=== PATIENT | female | born 1945 | race Caucasian/White ===

== ENCOUNTER 2018-12-17 09:50 | Inpatient (IN) | payer MEDICARE, OTHER ==
[2018-12-17] MEDS ORDERED: SODIUM CHLORIDE 0.9% 500 ML 500 ML IV STA (10:01)
--- NOTE | 2018-12-17 10:23 | ED ---
General Adult HPI - General Chief complaint: Syncope Stated complaint: SYNCOPE YESTERDAY HEART Hx Time Seen by Provider: 12/17/18 10:01 Source: patient, RN notes reviewed, old records reviewed Mode of arrival: wheelchair Limitations: no limitations - History of Present Illness Initial comments: 73-year-old female presents for evaluation of syncopal episode. Patient had a near syncopal episode yesterday afternoon. She was out in the hot sun, had not had much to eat or drink, she became lightheaded and diaphoretic. She had collapsed without injury. She was caught by her family member. Her symptoms did improve with oral hydration. She had no preceding chest pain or palpitations. She called her primary doctor today who encouraged her to present to the emergency department for evaluation. She states she may have been unconscious for just 1 second. No headache. She has been eating and drinking well today. She feels fine at the time my evaluation. - Related Data Home Medications Medication Instructions Recorded Confirmed Flecainide [Tambocor] 50 mg PO Q12HR 06/06/14 12/17/18 LORazepam [Ativan] 1 mg PO TID PRN 06/06/14 12/17/18 Metoprolol Tartrate [Lopressor] 50 mg PO BID 06/06/14 12/17/18 Losartan/Hydrochlorothiazide 1 tab PO DAILY 12/17/18 12/17/18 [Losartan-Hctz 100-25 mg Tab] Allergies Allergy/AdvReac Type Severity Reaction Status Date / Time No Known Allergies Allergy Verified 12/17/18 10:24 Review of Systems ROS Statement: Those systems with pertinent positive or pertinent negative responses have been documented in the HPI. ROS Other: All systems not noted in ROS Statement are negative. Past Medical History Past Medical History: Hypertension Additional Past Medical History / Comment(s): CYST TO SCALP,IRREGULAR HEARTBEAT. History of Any Multi-Drug Resistant Organisms: None Reported Past Surgical History: Cardiac Ablation, Hysterectomy, Orthopedic Surgery Additional Past Surgical History / Comment(s): RT WRIST SURGERY, SUSAN CATARACTS Past Anesthesia/Blood Transfusion Reactions: No Reported Reaction Past Psychological History: Anxiety Smoking Status: Never smoker Past Alcohol Use History: None Reported Past Drug Use History: None Reported - Past Family History Mother Additional Family Medical History / Comment(s): HEART PROBLEMS Father Additional Family Medical History / Comment(s): HEART PROBLEMS General Exam Limitations: no limitations General appearance: alert, in no apparent distress Head exam: Present: atraumatic, normocephalic Eye exam: Present: normal appearance, PERRL ENT exam: Present: mucous membranes dry Neck exam: Present: normal inspection. Absent: tenderness, meningismus Respiratory exam: Present: normal lung sounds bilaterally. Absent: respiratory distress, wheezes Cardiovascular Exam: Present: regular rate, normal rhythm GI/Abdominal exam: Present: soft. Absent: distended, tenderness, guarding Extremities exam: Present: normal inspection, normal capillary refill. Absent: pedal edema, joint swelling Neurological exam: Present: alert, oriented X3, CN II-XII intact. Absent: motor sensory deficit Psychiatric exam: Present: normal affect, normal mood Skin exam: Present: warm, dry, intact. Absent: cyanosis, diaphoretic Course Vital Signs 12/17/18 12/17/18 09:53 12:11 Temperature 98.0 F Pulse Rate 69 75 Respiratory 18 16 Rate Blood Pressure 147/79 127/70 O2 Sat by Pulse 97 94 L Oximetry EKG Findings - EKG Comments: EKG Findings:: EKG: Sinus rhythm first-degree AV block, right bundle branch blo ck, T-wave inversion in inferior leads. No ST segment elevation. Rate of 72, CT interval 234, QRS duration 162, QTC 512. Patient has significant changes in EKG compared to May 2014. Medical Decision Making - Medical Decision Making 73 female with episode of syncope. Patient has stable vitals, my evaluation. She is in normal sinus rhythm with right bundle branch block, significant change in EKG compared to prior. Patient has chest x-ray which negative for any acute cardiac disease, normal CBC, mild hypokalemia which is replaced, potassium is 3.3. She has creatinine 1.2 which is slightly elevated from baseline. She has a troponin is 0.018. Urinalysis negative. Will be kept in observation for serial cardiac enzymes, telemetry, cardiology consultation. Case is discussed with Dr. Hendricks, will accept admission. Recommends ultrasound of carotid arteries and echo. This will be ordered. - Lab Data Result diagrams: 12/17/18 10:00 12/17/18 10:00 Lab Results 12/17/18 12/17/18 12/17/18 Range/Units 10:00 10:00 10:00 WBC 8.8 (3.8-10.6) k/uL RBC 5.02 (3.80-5.40) m/uL Hgb 15.6 (11.4-16.0) gm/dL Hct 45.9 (34.0-46.0) % MCV 91.6 (80.0-100.0) fL MCH 31.2 (25.0-35.0) pg MCHC 34.1 (31.0-37.0) g/dL RDW 12.9 (11.5-15.5) % Plt Count 342 (150-450) k/uL Neutrophils % 70 % Lymphocytes % 20 % Monocytes % 6 % Eosinophils % 3 % Basophils % 1 % Neutrophils # 6.2 (1.3-7.7) k/uL Lymphocytes # 1.8 (1.0-4.8) k/uL Monocytes # 0.5 (0-1.0) k/uL Eosinophils # 0.2 (0-0.7) k/uL Basophils # 0.0 (0-0.2) k/uL PT 10.1 (9.0-12.0) sec INR 0.9 (<1.2) APTT 23.4 (22.0-30.0) sec Sodium 140 (137-145) mmol/L Potassium 3.3 L (3.5-5.1) mmol/L Chloride 101 (98-107) mmol/L Carbon Dioxide 31 H (22-30) mmol/L Anion Gap 8 mmol/L BUN 32 H (7-17) mg/dL Creatinine 1.22 H (0.52-1.04) mg/dL Est GFR (CKD-EPI)AfAm 51 (>60 ml/min/1.73 sqM) Est GFR (CKD-EPI)NonAf 44 (>60 ml/min/1.73 sqM) Glucose 99 (74-99) mg/dL Calcium 10.1 (8.4-10.2) mg/dL Magnesium 2.0 (1.6-2.3) mg/dL Total Bilirubin 0.6 (0.2-1.3) mg/dL AST 20 (14-36) U/L ALT 22 (9-52) U/L Alkaline Phosphatase 74 (38-126) U/L Troponin I (0.000-0.034) ng/mL Total Protein 7.4 (6.3-8.2) g/dL Albumin 4.1 (3.5-5.0) g/dL Urine Color Urine Appearance (Clear) Urine pH (5.0-8.0) Ur Specific [place] (1.001-1.035) Urine Protein (Negative) Urine Glucose (UA) (Negative) Urine Ketones (Negative) Urine Blood (Negative) Urine Nitrite (Negative) Urine Bilirubin (Negative) Urine Urobilinogen (<2.0) mg/dL Ur Leukocyte Esterase (Negative) Urine WBC (0-5) /hpf Ur Squamous Epith Cells (0-4) /hpf Amorphous Sediment (None) /hpf Urine Bacteria (None) /hpf Urine Mucus (None) /hpf 12/17/18 12/17/18 Range/Units 10:00 10:00 WBC (3.8-10.6) k/uL RBC (3.80-5.40) m/uL Hgb (11.4-16.0) gm/dL Hct (34.0-46.0) % MCV (80.0-100.0) fL MCH (25.0-35.0) pg MCHC (31.0-37.0) g/dL RDW (11.5-15.5) % Plt Count (150-450) k/uL Neutrophils % % Lymphocytes % % Monocytes % % Eosinophils % % Basophils % % Neutrophils # (1.3-7.7) k/uL Lymphocytes # (1.0-4.8) k/uL Monocytes # (0-1.0) k/uL Eosinophils # (0-0.7) k/uL Basophils # (0-0.2) k/uL PT (9.0-12.0) sec INR (<1.2) APTT (22.0-30.0) sec Sodium (137-145) mmol/L Potassium (3.5-5.1) mmol/L Chloride (98-107) mmol/L Carbon Dioxide (22-30) mmol/L Anion Gap mmol/L BUN (7-17) mg/dL Creatinine (0.52-1.04) mg/dL Est GFR (CKD-EPI)AfAm (>60 ml/min/1.73 sqM) Est GFR (CKD-EPI)NonAf (>60 ml/min/1.73 sqM) Glucose (74-99) mg/dL Calcium (8.4-10.2) mg/dL Magnesium (1.6-2.3) mg/dL Total Bilirubin (0.2-1.3) mg/dL AST (14-36) U/L ALT (9-52) U/L Alkaline Phosphatase (38-126) U/L Troponin I 0.018 (0.000-0.034) ng/mL Total Protein (6.3-8.2) g/dL Albumin (3.5-5.0) g/dL Urine Color Yellow Urine Appearance Cloudy H (Clear) Urine pH 5.5 (5.0-8.0) Ur Specific [place] 1.021 (1.001-1.035) Urine Protein Negative (Negative) Urine Glucose (UA) Negative (Negative) Urine Ketones Negative (Negative) Urine Blood Negative (Negative) Urine Nitrite Negative (Negative) Urine Bilirubin Negative (Negative) Urine Urobilinogen <2.0 (<2.0) mg/dL Ur Leukocyte Esterase Trace H (Negative) Urine WBC 9 H (0-5) /hpf Ur Squamous Epith Cells 6 H (0-4) /hpf Amorphous Sediment Moderate H (None) /hpf Urine Bacteria Rare H (None) /hpf Urine Mucus Rare H (None) /hpf Disposition Clinical Impression: Syncope and collapse Disposition: ADMITTED IP TO THIS HOSP Condition: Stable Is patient prescribed a controlled substance at d/c from ED?: No Referrals: Bernardo Saldana DO [Primary Care Provider] - 1-2 days Decision to Admit Reason: Admit from EC Decision Date: 12/17/18 Decision Time: 13:34
[2018-12-17 10:48] LABS: Basophils % (A) 1 %; Eosinophils # (A) 0.2 k/uL (0-0.7); Eosinophils % (A) 3 %; HCT 45.9 % (34.0-46.0); HGB 15.6 gm/dL (11.4-16.0); Lymphocytes # (A) 1.8 k/uL (1.0-4.8); Lymphocytes % (A) 20 %; MCH 31.2 pg (25.0-35.0); MCHC 34.1 g/dL (31.0-37.0); MCV 91.6 fL (80.0-100.0); Mean Platelet Volume 8.1; Monocytes # (A) 0.5 k/uL (0-1.0); Monocytes % (A) 6 %; Neutrophils # (A) 6.2 k/uL (1.3-7.7); Neutrophils % (A) 70 %; Platelet Count 342 k/uL (150-450); RBC 5.02 m/uL (3.80-5.40); RDW 12.9 % (11.5-15.5); WBC 8.8 k/uL (3.8-10.6)
--- NOTE | 2018-12-17 10:50 | XR ---
EXAMINATION TYPE: XR chest 2V DATE OF EXAM: 12/17/2018 COMPARISON: 09/05/2015 HISTORY: Shortness of breath TECHNIQUE: Frontal and lateral views of the chest are obtained. FINDINGS: Scattered senescent parenchymal changes noted. Hyperinflation compatible with COPD. No evidence for infiltrate. No evidence for atelectasis. Heart size is stable. Mediastinal structures are stable and grossly unremarkable. No evidence for hilar prominence. Degenerative changes dorsal spine. IMPRESSION: 1. No evidence for acute pulmonary disease.
[2018-12-17 10:58] LABS: Albumin 4.1 g/dL (3.5-5.0); Calcium 10.1 mg/dL (8.4-10.2); Potassium 3.3 mmol/L (3.5-5.1); Total Bilirubin 0.6 mg/dL (0.2-1.3); Total Protein 7.4 g/dL (6.3-8.2)
[2018-12-17 11:01] LABS: Amorphous Sediment,Urine Moderate /hpf; Appearance,Urine Cloudy (Clear); Bacteria,Urine Rare /hpf; Bilirubin,Urine Negative (Negative); Blood,Urine Negative (Negative); Color,Urine Yellow; Glucose,Urine (UA) Negative (Negative); Ketones,Urine Negative (Negative); Leukocyte Esterase,Urine Trace (Negative); Mucus,Urine Rare /hpf; Nitrite,Urine Negative (Negative); PH, Urine 5.5 (5.0-8.0); Protein,Urine Negative (Negative); Specific Gravity,Urine 1.021 (1.001-1.035); Squamous Epithelial Cell,Urine 6 /hpf (0-4); Urobilinogen,Urine <2.0 mg/dL (<2.0); WBC,Urine 9 /hpf (0-5)
[2018-12-17 11:04] LABS: INR 0.9 (<1.2); Partial Thromboplastin Time 23.4 sec (22.0-30.0); Prothrombin Time 10.1 sec (9.0-12.0)
[2018-12-17] MEDS ORDERED: POTASSIUM CHLORIDE ER 20 MEQ TAB.ER PO STA (12:09)
[2018-12-17 12:13] VITALS: RESP 16
[2018-12-17] MEDS: SODIUM CHLORIDE 0.9% 1,000 ML IV SCH (12:22)
[2018-12-17] MEDS ORDERED: ASPIRIN 325 MG TAB PO STA (13:28)
[2018-12-17] MEDS ORDERED: ACETAMINOPHEN TAB 325 MG TAB PO PRN (13:29)
[2018-12-17] MEDS ORDERED: NALOXONE 0.4 MG/ML 1 ML VIAL IV PRN (13:29)
--- NOTE | 2018-12-17 15:14 | US ---
EXAMINATION TYPE: US carotid duplex BILAT DATE OF EXAM: 12/17/2018 COMPARISON: NONE CLINICAL HISTORY: syncope. Syncope Pt having uncontrollable movements during exam, difficult exam EXAM MEASUREMENTS: RIGHT: Peak Systolic Velocity (PSV) cm/sec ----- Right CCA: 43.5 ----- Right ICA: 47.9 ----- Right ECA: 111.3 ICA/CCA ratio: 1.1 RIGHT: End Diastole cm/sec ----- Right CCA: 8.6 ----- Right ICA: 11.3 ----- Right ECA: 12.8 LEFT: Peak Systolic Velocity (PSV) cm/sec ----- Left CCA: 60.1 ----- Left ICA: 61.0 ----- Left ECA: 100.0 ICA/CCA ratio: 1.0 LEFT: End Diastole cm/sec ----- Left CCA: 12.1 ----- Left ICA: 16.5 ----- Left ECA: 9.2 VERTEBRALS (direction of flow): Right Vertebral: Antegrade Left Vertebral: Unable to visualize Rhythm: Normal No significant stenosis seen IMPRESSION: No evidence for hemodynamically significant stenosis. Criteria for Assigning % of Stenosis / Diameter reduction (Estimation based on the indirect measurements of the internal carotid artery velocities (ICA PSV). 1. Normal (no stenosis)=ICA PSV < 125 cm/s: ratio < 2.0: ICA EDV<40 cm/s. 2. Less than 50% stenosis=ICA PSV < 125 cm/s: ratio < 2.0: ICA EDV<40 cm/s. 3. 50 to 69% stenosis=ICA PSV of 125 to 230 cm/s: ration 2.0 ? 4.0: ICA EDV 40-100 cm/s. 4. Greater than 70% stenosis to near occlusion= ICA PSV > 230 cm/s: ratio > 4.0: ICA EDV > 100 cm/s. 5. Near occlusion= ICA PSV velocities may be low or undetectable: variable ratio and ICA EDV. 6. Total occlusion=unable to detect flow.
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
[2018-12-17] MEDS: FLECAINIDE 50 MG TAB PO SCH (20:25)
[2018-12-17] MEDS: METOPROLOL TARTRATE 50 MG TAB PO SCH (20:25)
[2018-12-17] MEDS: LORazepam 1 MG TAB PO PRN (22:27)
[2018-12-17] MEDS: HEPARIN SODIUM,PORCINE 5,000 UNIT/ML 1 ML VIAL SQ SCH (22:28)
[2018-12-18 06:25] LABS: Basophils % (A) 1 %; Eosinophils # (A) 0.2 k/uL (0-0.7); Eosinophils % (A) 3 %; HCT 39.3 % (34.0-46.0); HGB 12.8 gm/dL (11.4-16.0); Lymphocytes # (A) 1.7 k/uL (1.0-4.8); Lymphocytes % (A) 28 %; MCH 30.7 pg (25.0-35.0); MCHC 32.6 g/dL (31.0-37.0); Mean Platelet Volume 8.4; Monocytes # (A) 0.3 k/uL (0-1.0); Monocytes % (A) 5 %; Neutrophils # (A) 3.7 k/uL (1.3-7.7); Neutrophils % (A) 62 %; Platelet Count 262 k/uL (150-450); RBC 4.18 m/uL (3.80-5.40); RDW 14.2 % (11.5-15.5); WBC 6.1 k/uL (3.8-10.6)
[2018-12-18 06:34] LABS: Calcium 8.3 mg/dL (8.4-10.2); Potassium 3.7 mmol/L (3.5-5.1); Total Bilirubin 0.5 mg/dL (0.2-1.3); Total Protein 5.7 g/dL (6.3-8.2)
[2018-12-18] MEDS: METOPROLOL TARTRATE 50 MG TAB PO SCH ×2 (09:00→20:48)
[2018-12-18] MEDS: HEPARIN SODIUM,PORCINE 5,000 UNIT/ML 1 ML VIAL SQ SCH ×3 (09:00→22:38)
[2018-12-18] MEDS: LOSARTAN-HCTZ 50-12.5 MG 1 EACH TAB PO SCH (09:00)
[2018-12-18] MEDS: SODIUM CHLORIDE 0.9% 1,000 ML IV SCH ×2 (09:00→17:28)
[2018-12-18] MEDS ORDERED: ASPIRIN 325 MG TAB PO SCH (09:00)
[2018-12-18] MEDS: FAMOTIDINE 20 MG TAB PO SCH (09:01)
[2018-12-18] MEDS: FLECAINIDE 50 MG TAB PO SCH ×2 (09:01→20:48)
[2018-12-18] MEDS: LORazepam 1 MG TAB PO PRN ×2 (09:07→22:38)
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
--- NOTE | 2018-12-18 09:23 | ECHOF ---
Referral Reason:syncope MEASUREMENTS -------- HEIGHT: 170.2 cm WEIGHT: 63.5 kg BP: IVSd: 1.0 cm (0.6 - 1.1) LVIDd: 4.3 cm (3.9 - 5.3) LVPWd: 1.1 cm (0.6 - 1.1) IVSs: 1.7 cm LVIDs: 2.1 cm LVPWs: 1.9 cm RVIDd: 2.9 cm (< 3.3) Ao Diam: 4.0 cm (2.0 - 3.7) LA Diam: 2.5 cm (2.7 - 3.8) AV Cusp: 2.1 cm (1.5 - 2.6) EPSS: 0.2 cm MV E Angel Luis: 0.49 m/s MV DecT: 219 ms MV A Angel Luis: 0.88 m/s MV E/A Ratio: 0.56 AR PHT: 530 ms RAP: 5.00 mmHg RVSP: 14.34 mmHg MV EF SLOPE: 47.87 mm/s (70 - 150) MV EXCURSION: 16.66 mm (> 18.000) FINDINGS -------- Sinus rhythm. This was a technically difficult study with suboptimal views. The left ventricular size is normal. Left ventricular wall thickness is normal. Overall left vent ricular systolic function is normal with, an EF between 55 - 60 %. The right ventricle is normal in size. The left atrial size is normal. The right atrial size is normal. Lumason used Interatrial and interventricular septum intact. Aortic valve is trileaflet and is mildly thickened. Trace amount of aortic regurgitation. The mitral valve is normal. The mitral valve leaflets are mildly thickened. There is trace mitral regurgitation. The tricuspid valve appears structurally normal. Trace tricuspid regurgitation present. There is no evidence of pulmonary hypertension. The right ventricular systolic pressure, as measured by Dopp ler, is 14.34mmHg. Trace/mild (physiologic) pulmonic regurgitation. The aortic root is dilated measuring 4.0 cm The inferior vena cava was not well visualized. There is no pericardial effusion. CONCLUSIONS -------- 1. Sinus rhythm. 2. This was a technically difficult study with suboptimal views. 3. The left ventricular size is normal. 4. Left ventricular wall thickness is normal. 5. Overall left ventricular systolic function is normal with, an EF between 55 - 60 %. 6. The right ventricle is normal in size. 7. The left atrial size is normal. 8. The right atrial size is normal. 9. Lumason used 10. Interatrial and interventricular septum intact. 11. Aortic valve is trileaflet and is mildly thickened. 12. Trace amount of aortic regurgitation. 13. The mitral valve is normal. 14. The mitral valve leaflets are mildly thickened. 15. There is trace mitral regurgitation. 16. The tricuspid valve appears structurally normal. 17. Trace tricuspid regurgitation present. 18. There is no evidence of pulmonary hypertension. 19. The right ventricular systolic pressure, as measured by Doppler, is 14.34mmHg. 20. Trace/mild (physiologic) pulmonic regurgitation. 21. The aortic root is dilated measuring 4.0 cm. 22. The inferior vena cava was not well visualized. 23. There is no pericardial effusion. GLAZE HANDLER: Josey Jin RDCS
--- NOTE | 2018-12-18 13:45 | P.PN ---
Subjective Progress Note Date: 12/18/18 73-year-old female one of Dr. Saldana patient who is mildly mentally challenged with past medical history of atrial tachycardia /SVT post- ablation therapy few years ago Dr. Clark has been doing well she went for her niece's graduation yesterday while she is waiting in line become very dehydrated very flushed and sweaty and had syncopal episode lasted only for a few seconds and did not have loss of consciousness at the time patient was very lightheaded and dizzy did not feel well the rest of the day.This morning patient has not been feeling well at all has been shaky had low-grade temperature mild nausea slight lightheadedness ended up calling Dr. Ruiz office and was instructe d to come to the emergency department at [facility] where was seen and evaluated her lab showed acute kidney injury UA was slightly but positive for UTI EKG showed right bundle-branch block with negative troponin with the syncopal episode and the above problem decided to admit patient to the hospital controlled her symptom reevaluated by cardiology and treat her UTI along with hydrating her well. 12/18: Patient sitting up in a recliner she denies any chest pain or any shortness breath she is feeling better she denies any dizziness or lightheadedness, she has no abdominal pain, nausea, vomiting, she was started yesterday on Rocephin for possible UTI. She would be seen in consultation by cardiology for possibility of cardiac cause of her syncope. Review of Systems CONSTITUTIONAL: Well-developed no acute respiratory distress. EYES: No icterus sclerae, no conjunctivitis. EARS, NOSE, MOUTH, THROAT, and FACE: No sore throat, lymphadenopathy, carotid bruits or deformity. RESPIRATORY: No SOB cough or wheezes. CARDIOVASCULAR: Mild lightheadedness and syncope with mild palpitation. GASTROINTESTINAL: No Abd pain, Nausea or vomiting, no Diarrhea or constipation, No GI Bleed, no distention or masses. GENITOURINARY: Positive polyuria urinary frequency and UTI. INTEGUMENT/BREAST: Negative for any muscular injury with mild osteoarthritis.. HEMATOLOGIC/LYMPHATIC: Negative for bleed or purpura. MUSCULOSKELTAL: Negative for Myalgia or arthralgia. NEURLOGICAL: Syncope with no sign of seizure BEHAVIORAL/PSYCH: Negative. ENDOCRINE: Negative. Objective - Vital Signs Vital signs: Vital Signs Temp 97.6 F 12/18/18 03:30 Pulse 68 12/18/18 03:30 Resp 16 12/18/18 03:30 BP 134/78 12/18/18 03:30 Pulse Ox 94 L 12/18/18 03:30 Intake & Output 12/17/18 12/18/18 12/18/18 18:59 06:59 18:59 Intake Total 150 420 Output Total 250 100 Balance -100 320 Weight 63.503 kg 64 kg Intake: Intake, IV Titration 150 Amount Sodium Chloride 0.9% 1, 150 000 ml @ 75 mls/hr IV . [id number] THOMAS Rx#:[id number] Oral 420 Output: Urine 250 100 Other: # Voids 1 1 # Bowel Movements 1 - Exam General Appearance: Alert, cooperative, no distress, appears stated age. Neck HEENT: Supple, no lymphadenopathy, no thyroid enlargement, no carotid bruits. Lungs: Clear to auscultation without crackles or wheezes no rhonchi, no deformity. Chest Wall: Chest wall normal expansion with deep inspiration no tenderness and no deformity was found on exam, no costochondral pain or discomfort. Heart: Regular rate and rhythm, S1, S2 normal, no murmur, rub or gallop. Back: Symmetric, no curvature, ROM normal, no CVA tenderness. Abdomen: Soft, non-tender, bowel sounds active all four quadrants, no masses, no organomegaly. Slight lower abdominal discomfort. Extremities: Extremities normal, atraumatic, no cyanosis or edema. Pulses: 2+ and symmetric. Skin: Skin color, texture, tugor normal, no rashes or lesions. Neurologic: Alert oriented moving all her 4 extremity has generalized weakness overall with mild abnormal balance and gait, her cognitive and current medic ation is not that great - Labs CBC & Chem 7: 12/18/18 05:37 12/18/18 05:37 Labs: Abnormal Lab Results - Last 24 Hours (Table) 12/17/18 12/17/18 12/18/18 Range/Units 10:00 10:00 05:37 Potassium 3.3 L (3.5-5.1) mmol/L Chloride 110 H (98-107) mmol/L Carbon Dioxide 31 H (22-30) mmol/L BUN 32 H 23 H (7-17) mg/dL Creatinine 1.22 H (0.52-1.04) mg/dL Calcium 8.3 L (8.4-10.2) mg/dL Total Protein 5.7 L (6.3-8.2) g/dL Albumin 3.0 L (3.5-5.0) g/dL Urine Appearance Cloudy H (Clear) Ur Leukocyte Esterase Trace H (Negative) Urine WBC 9 H (0-5) /hpf Ur Squamous Epith Cells 6 H (0-4) /hpf Amorphous Sediment Moderate H (None) /hpf Urine Bacteria Rare H (None) /hpf Urine Mucus Rare H (None) /hpf Assessment and Plan Assessment: Assessment and Plan Plan: 1 syncope: Not clear etiology, cardiac versus neurology problem, dehydration, arrhythmia, UTI, hypotension. Will hydrate patient, treat underlying disease, watch her on phototypesetting equipment monitor, CK with troponin 3 will be done, if recurrent symptom further testing including longer term heart monitor along with tilt table study and referred to electrophysiology. 2 severe dehydration: Patient will be on IV fluid for the next 24 hours we'll continue to check for any orthostatic blood pressure check change. 3 abnormal EKG: With right bundle branch block with Narrow QRS complex previously patient apparently seen Dr. Clark on regular basis and still on Tambocor she had ablation therapy in the past, CK with troponin will be done repeat EKG echocardiogram and recheck by cardiology. 4 UTI: Urine culture be done, patient will have 1 g of Rocephin daily and when going home she'll be on Ceftin 250 mg twice a day for 7 days. 5 A. fib with RVR: Post ablation still on Tambocor and metoprolol with pulse rates under control lately. 6 hypertension: Has been on losartan HCT handed/25 g a day along with Lopressor 50 mg twice a day. 7 acute kidney injury: Most likely from dehydration repeat CMP tomorrow. GI prophylaxis: Patient will be on Pepcid 20 mg daily. DVT prophylaxis: Patient will be on heparin 5000 units subcu in his twice a day.
[2018-12-19 05:58] LABS: Basophils % (A) 1 %; Eosinophils # (A) 0.2 k/uL (0-0.7); Eosinophils % (A) 3 %; HCT 37.2 % (34.0-46.0); HGB 12.3 gm/dL (11.4-16.0); Lymphocytes # (A) 1.3 k/uL (1.0-4.8); Lymphocytes % (A) 20 %; MCH 30.7 pg (25.0-35.0); MCV 93.1 fL (80.0-100.0); Mean Platelet Volume 8.2; Monocytes # (A) 0.4 k/uL (0-1.0); Monocytes % (A) 6 %; Neutrophils # (A) 4.5 k/uL (1.3-7.7); Neutrophils % (A) 69 %; Platelet Count 226 k/uL (150-450); RBC 3.99 m/uL (3.80-5.40); WBC 6.6 k/uL (3.8-10.6)
[2018-12-19 06:06] VITALS: TEMP 98.1
[2018-12-19 06:09] LABS: Calcium 8.5 mg/dL (8.4-10.2); Potassium 3.3 mmol/L (3.5-5.1); Total Bilirubin 0.6 mg/dL (0.2-1.3); Total Protein 5.6 g/dL (6.3-8.2)
[2018-12-19] MEDS: SODIUM CHLORIDE 0.9% 1,000 ML IV SCH (08:34)
[2018-12-19] MEDS: HEPARIN SODIUM,PORCINE 5,000 UNIT/ML 1 ML VIAL SQ SCH (08:35)
[2018-12-19] MEDS: FLECAINIDE 50 MG TAB PO SCH (08:36)
[2018-12-19] MEDS: METOPROLOL TARTRATE 50 MG TAB PO SCH (08:36)
[2018-12-19] MEDS: FAMOTIDINE 20 MG TAB PO SCH (08:36)
[2018-12-19] MEDS: LOSARTAN-HCTZ 50-12.5 MG 1 EACH TAB PO SCH (08:36)
[2018-12-19] MEDS: LORazepam 1 MG TAB PO PRN (08:39)
[2018-12-19] MEDS ORDERED: ASPIRIN 81 MG PO SCH (09:00)
[2018-12-19] MEDS ORDERED: POTASSIUM CHLORIDE ER 20 MEQ TAB.ER PO STA (09:09)
--- NOTE | 2018-12-19 11:21 | P.DS ---
Providers Date of admission: 12/17/18 13:29 Attending physician: Rudolph Hendricks Consults: 12/17/18 13:30 Consult Physician Routine Consulting Provider: Fabio Hernandez Consult Reason/Comments: syncope ekg changes Do you want consulting provider notified?: Yes 12/17/18 16:16 Consult Physician Routine Consulting Provider: Dee Nowak Consult Reason/Comments: RBBB, syncope Do you want consulting provider notified?: Yes Primary care physician: Bernardo Saldana [facility] Course: 73-year-old female one of Dr. Saldana patient who is mildly mentally challenged with past medical history of atrial tachycardia /SVT post- ablation therapy few years ago Dr. Clark has been doing well she went for her niece's graduation yesterday while she is waiting in line become very dehydrated very flushed and sweaty and had syncopal episode lasted only for a few seconds and did not have loss of consciousness at the time patient was very lightheaded and dizzy did not feel well the rest of the day.This morning patient has not been feeling well at all has been shaky had low-grade temperature mild nausea slight lightheadedness ended up calling Dr. Ruiz office and was instructed to come to the emergency department at [facility] where was seen and evaluated her lab showed acute kidney injury UA was slightly but positive for UTI EKG showed right bundle-branch block with negative troponin with the s yncopal episode and the above problem decided to admit patient to the hospital controlled her symptom reevaluated by cardiology and treat her UTI along with hydrating her well. 12/18: Patient sitting up in a recliner she denies any chest pain or any shortness breath she is feeling better she denies any dizziness or lightheadedness, she has no abdominal pain, nausea, vomiting, she was started yesterday on Rocephin for possible UTI. She would be seen in consultation by cardiology for possibility of cardiac cause of her syncope. 12/19: Patient is feeling better today she denies any chest pain, she has no shortness of breath, she has no dizziness or lightheadedness, we will discontinue IV fluid we will increase ambulation, patient can be discharged home she will need to have a 30 day event monitor she will picker and sorter load and unload [facility] hopefully on Thursday. Discharge diagnoses: 1. Syncope. Rule out cardiac causes 2. Minimal prerenal azotemia. 3. History of atrial tachycardia and SVT post-ablation in 2013 4. Bifascicular block on EKG 5. UTI. Patient Condition at Discharge: Stable Plan - Discharge Summary Discharge Rx Participant: No New Discharge Prescriptions: New Aspirin 81 mg PO DAILY chew Cefdinir [Omnicef] 300 mg PO BID #14 cap Continue LORazepam [Ativan] 1 mg PO TID PRN PRN Reason: Anxiety Metoprolol Tartrate [Lopressor] 50 mg PO BID Flecainide [Tambocor] 50 mg PO Q12HR Losartan/Hydrochlorothiazide [Losartan-Hctz 100-25 mg Tab] 1 tab PO DAILY Discharge Medication List Flecainide [Tambocor] 50 mg PO Q12HR 06/06/14 [History] LORazepam [Ativan] 1 mg PO TID PRN 06/06/14 [History] Metoprolol Tartrate [Lopressor] 50 mg PO BID 06/06/14 [History] Losartan/Hydrochlorothiazide [Losartan-Hctz 100-25 mg Tab] 1 tab PO DAILY 12/17/18 [History] Aspirin 81 mg PO DAILY chew 12/19/18 [Rx] Cefdinir [Omnicef] 300 mg PO BID #14 cap 12/19/18 [Rx] Follow up Appointment(s)/Referral(s): Bernardo Saldana DO [Primary Care Provider] - 1-2 days Discharge Disposition: HOME SELF-CARE
--- NOTE | 2018-12-19 12:12 | P.PN ---
Subjective Progress Note Date: 12/19/18 Principal diagnosis: Syncopal episode This is a pleasant 73-year-old female patient with a past medical history significant for SVT who underwent SVT ablation in the past as well as hypertension who was admitted to the hospital with syncope and underwent an echocardiogram which revealed normal LV function. No significant arrhythmia noted throughout her hospital stay. On follow-up with her today, 12/19/2018, she denies any chest pain or discomfort, shortness of breath, dizziness, or feeling of heart racing or fluttering. From the cardiac vascular standpoint overview, the patient can be discharged home and she needs to have an event monitor as an outpatient to rule out any cardiac arrhythmia. Objective - Vital Signs Vital signs: Vital Signs Temp 98.1 F 12/19/18 04:00 Pulse 79 12/19/18 08:00 Resp 16 12/19/18 08:00 BP 143/91 12/19/18 08:00 Pulse Ox 91 L 12/19/18 08:00 Intake & Output 12/18/18 12/19/18 12/19/18 18:59 06:59 18:59 Intake Total 900 300 240 Output Total 550 325 Balance 350 300 -85 Weight 68.6 kg Intake: Intake, IV Titration 300 Amount Sodium Chloride 0.9% 1, 300 000 ml @ 75 mls/hr IV . [id number] [facility] Rx#:[id number] Oral 900 240 Output: Urine 550 325 Other: # Voids 1 1 1 # Bowel Movements 1 1 - Constitutional General appearance: Present: no acute distress - Respiratory Respiratory: bilateral: CTA - Cardiovascular Rhythm: regular Heart sounds: normal: S1, S2 - Labs CBC & Chem 7: 12/19/18 05:46 12/19/18 05:46 Labs: Abnormal Lab Results - Last 24 Hours (Table) 12/19/18 Range/Units 05:46 Potassium 3.3 L (3.5-5.1) mmol/L Chloride 111 H (98-107) mmol/L Creatinine 1.05 H (0.52-1.04) mg/dL Total Protein 5.6 L (6.3-8.2) g/dL Albumin 3.0 L (3.5-5.0) g/dL Assessment and Plan Assessment: Assessment #1 syncopal episode #2 history of cardiac arrhythmia Plan #1 the patient can be discharged home #2 she needs to have an event monitor as an outpatient
[2018-12-19 12:14] VITALS: BP 133/70; PULSE 66
[2018-12-19] MEDS ORDERED: CEFDINIR 300 MG CAP PO SCH (21:00)
--- NOTE | 2018-12-21 06:14 | CDI ---
Documentation Clarification Form Date: 12/21/18 From: Hima Elkins Phone: call to [phone] Admit Date: 12/17/2018 1:29:00 PM Patient Name: Kathryn Lyons Visit Number: [id number] Discharge Date: 12/19/2018 3:10:00 PM ATTENTION: The Clinical Documentation Specialists (CDI) and [facility] Coding Staff appreciate your assistance in clarifying documentation. Please respond to the clarification below the line at the bottom and electronically sign. The CDI & [facility] Coding staff will review the response and follow-up if needed. Please note: Queries are made part of the Legal Health Record. If you have any questions, please contact the author of this message via ITS. Dr. Mini Ojeda, Request clarification of underlying cause of syncope. Pt presented with Syncope and underlying UTI. Patient also had Dehydration and CHAVA. Treatment: IV fluids, Antibiotics. Workup: Cardiac workup- Negative. In your professional opinion, can you please clarify which diagnosis, after study, accounted for the patients presenting symptoms and was the reason chiefly responsible for the admission? Syncope is Related to Dehydration and CHAVA. Syncope due to . Syncope cause unknown. MTDD
== END 2018-12-19 15:10 | disposition home or self-care (01) | DRG 312 ==
LOC: EC 09:50 → 3SCARD 13:29
PROVIDERS: ADMIT Internal Medicine Geriatric Medicine; ATTEND Internal Medicine Geriatric Medicine
DX: R55 Syncope and collapse (principal); N17.9 Acute kidney failure, unspecified; N39.0 Urinary tract infection, site not specified; I45.2 Bifascicular block; E86.0 Dehydration; I10 Essential (primary) hypertension; I44.0 Atrioventricular block, first degree; I45.10 Unspecified right bundle-branch block; I48.91 Unspecified atrial fibrillation; Z90.710 Acquired absence of both cervix and uterus; Z82.49 Family history of ischemic heart disease and other diseases of the circulatory system; Z79.899 Other long term (current) drug therapy
CPT/HCPCS: 36415; 71046; 80053; 81001; 83735; 84443; 84484; 85025; 85610; 85730; 93005; 93306; 93880; 96360; 99285

== ENCOUNTER → 2022-01-01 | Outpatient (CLI) | payer MEDICARE, OTHER ==
[2022-01-01 22:56] LABS: African American GFR (CKD) 40.2 (60.0-200.0); Anion Gap 22.1 mmol/L (10.00-18.00); BUN/Creat Ratio 16.55 Ratio (12.00-20.00); Calcium 9.9 mg/dL (8.7-10.3); Carbon Dioxide 26.4 mmol/L (20.0-27.5); Non-African American GFR(CKD) 34.7 (60.0-200.0); Potassium 3.4 mmol/L (3.5-5.5)
== END | disposition home or self-care (01) ==
LOC: LABWHC1 15:08
PROVIDERS: ATTEND Nurse Practitioner
DX: R00.1 Bradycardia, unspecified (principal)
CPT/HCPCS: 36415; 80048; 84443

== ENCOUNTER → 2022-02-06 | Outpatient (CLI) | payer MEDICARE, OTHER ==
[2022-02-06 18:23] LABS: HCT 46.3 % (37.2-46.3); HGB 14.6 g/dL (12.0-15.0); MCH 29.8 pg (27.0-32.0); MCHC 31.5 g/dL (32.0-37.0); MCV 94.5 fL (80.0-97.0); Mean Platelet Volume 13.3 fL (9.5-12.2); NRBC Per 100 WBC 0 /100 WBCS (0.0-0.0); Platelet Count 260 X 10*3/uL (140-440); WBC 7.41 X 10*3/uL (4.50-10.00)
[2022-02-06 18:34] LABS: African American GFR (CKD) 38.9 (60.0-200.0); Anion Gap 16.4 mmol/L (10.00-18.00); Carbon Dioxide 24.8 mmol/L (20.0-27.5); Non-African American GFR(CKD) 33.5 (60.0-200.0); Potassium 3.3 mmol/L (3.5-5.5)
== END | disposition home or self-care (01) ==
LOC: LABPAT 10:45
PROVIDERS: ATTEND Internal Medicine Interventional Cardiology
DX: Z01.812 Encounter for preprocedural laboratory examination (principal); I49.5 Sick sinus syndrome
CPT/HCPCS: 80051; 82565; 84520; 85027

== ENCOUNTER 2022-02-13 08:51 | Day surgery (SDC) | payer MEDICARE, OTHER ==
[~2022-02-13 08:51] MED LIST: ceFAZolin 1 GM in SODIUM CHLORIDE 0.9% IRRIG BTL 250 ML IRRIGATION PRN
[2022-02-13] MEDS: SODIUM CHLORIDE 0.9% 1,000 ML IV SCH ×3 (09:15→16:46)
[2022-02-13 10:07] LABS: Calcium 9.9 mg/dL (8.4-10.2); Potassium 3.4 mmol/L (3.5-5.1)
[2022-02-13] MEDS ORDERED: MIDAZOLAM 2 MG/2 ML VIAL IV STA (10:12)
[2022-02-13] MEDS ORDERED: MIDAZOLAM 2 MG/2 ML VIAL IVP ONE (10:16)
[2022-02-13] MEDS ORDERED: IOPAMIDOL-370 50ML BTL INJ ONE (11:01)
[2022-02-13] MEDS ORDERED: fentaNYL (PF) 50 MCG/ML 2 ML AMP ONE (11:09)
[2022-02-13] MEDS: MIDAZOLAM 2 MG/2 ML VIAL IV ONE ×3 (11:28→12:42)
[2022-02-13] MEDS ORDERED: fentaNYL (PF) 50 MCG/ML 2 ML AMP IV ONE (11:34)
[2022-02-13] MEDS ORDERED: LIDOCAINE 1% INJ 10MG/ML (30 ML VIAL-PF) SQ ONE (11:38)
[2022-02-13] MEDS ORDERED: ACETAMINOPHEN TAB 325 MG TAB PO PRN (13:31)
--- NOTE | 2022-02-13 13:31 | P.PCN ---
Description of Procedure: Procedure(s): Dual Chamber Permanent Pacemaker Implantation; Cardiac Fluoroscopy Indications: Sick sinus syndrome with symptomatic bradycardia and heart rates in the low 30s with that he inadequate chronotropic response Preprocedure Diagnosis: Sick sinus syndrome and symptomatic bradycardia Postprocedure Diagnosis: Sick sinus syndrome with symptomatic bradycardia Clinical information: This patient has history of previous SVT with ablation. She also has benign tremor and torticollis. He has been having dizziness and lightheadedness and near-syncope with heart rate in the mid to low 30s sometimes. With exercise heart rate went up to 60 bpm. Because of symptomatic bradycardia advised a permanent dual-chamber pacemaker after due discussion with the patient and her immediate relatives which is her cousin. They understood all details and wish to proceed with the procedure. All risks benefits options were explained in detail. Procedure Details: The risks, benefits, complications, treatment options, and expected outcomes were discussed with the patient. The patient and/or family concurred with the proposed plan, giving informed consent. Patient was prepped and draped in the usual strict sterile fashion. After the antibiotic was completely infused, 20 mL of 1% lidocaine was infiltrated into the area just medial to the left deltopectoral groove. Using a micropuncture needle technique with fluoroscopic guidance two access points were obtained into the axillary vein. 2 wires were advanced under to access fluoroscopic guidance in In the right atrium. Using a #15 scalpel, an incision was made. The incision was extended to the pre-pectoral fascia using blunt dissection. Using cautery and dissection a pocket was made. A guidewire was advanced to the heart underfluoroscopic guidance. Sheath was advanced over the guidewire. A guidewire was retained, and dilator was removed. A pacemaker lead was advanced to the heart underfluoroscopic guidance. The sheath was peeled away. The lead was fixated to the right ventricular apex. Appropriate sensing and thresholds were obtained. No diaphragmatic pacing occurr ed at 10 V and 1.5 ms. As second sheath was advanced over the guidewire. The dilator and guidewire were removed. A pacemaker lead was advanced to the heart underfluoroscopic guidance. The sheath was peeled away. The lead was fixated to the right atrial appendage. Appropriate sensing and thresholds were obtained. No diaphragmatic pacing occurred at 10 V and 1.5 ms. Both were active leads and both the leads were screwed and and secured to the underlying muscle using 2 separate 0 silk sutures. The leads were then sutured to the pectoralis muscle using silk. Hemostasis was achieved. The measurements were then rechecked. A left pre-pectoral pocket was fashioned.The pocket was irrigated with antibiotic and i left an antibiotic sponge in the pocket for 25 minutes. The leads were attached to the generator. The system was placed in the pocket. The pacemaker and lead system were visualized under fluoroscopy. Appropriate redundancy/slacken the leads were noted. The pins of the leads were beyond the set screws. The pulse generator was also secured to the underlying muscle using a 0 silk suture. Hemostasis was reverified. The pocket was then closed with 2.0 and 3.0 Vicryl. Steri-Strips, a gauze dressing, and operative site were placed. [employer] [issue 20 MRI p.m. 2272 serial number [id number], the atrial lead waterproofing mixer is [employer] model tendril STS 2088 TC serial number [id number], ventricular lead waterproofing mixer [employer] model tendril STS 2088 TC serial number EDH is [id number]. The atrial threshold was 0.75 v at 0.4 ms the P-wave mv3.6 . The lead impedance was 960 ohms. The ventricular lead threshold was 0.5 v at 0.4 ms and R wave is at 8.2mv , lead impedance was 640 ohms. The pacemaker was set in a DDD mode with a lower rate of 50 hydrated of 120 with a AV paced delay of 225 ms and AV sensory delay of 200 ms. The pacemaker was set at a lower rate of 60 high rate of 120 BPM the remote was DDD AV paced delay was 225 ms. AV sensed delay was 200 ms. Estimated Blood Loss: Less than 50 ml. Complications: None; patient tolerated the procedure well. Disposition: PACU - hemodynamically stable. Condition: Stable. No complications. Patient will be discharged in 24 hours after device check and chest x-ray. The moderate conscious sedation time was 111 minutes. Patient was administered Versed and fentanyl oxygen saturation hematemesis and EKG were monitored closely. Patient daughter procedure well details are discussed with the family/her cousin
[2022-02-13] MEDS: LORazepam 1 MG TAB PO PRN ×2 (15:03→22:41)
--- NOTE | 2022-02-13 15:03 | XR ---
EXAMINATION TYPE: XR chest 1V portable DATE OF EXAM: 02/13/2022 Comparison: 12/17/2018 Clinical History: 76-year-old female Lead placement check Findings: Left anterior chest wall pacemaker generator with right atrial and right ventricular leads. Heart mildly enlarged. Bony vasculature within normal limits. Rightward rotation ultrasonography medi astinal contours. Some strandy atelectasis at the left base. No consolidation or pleural effusion see n. Impression: Rotated exam. Borderline to mild cardiomegaly. No definite acute process.
[2022-02-13] MEDS: METOPROLOL TARTRATE 25 MG TAB PO SCH (16:16)
[2022-02-13 20:25] VITALS: RESP 16
[2022-02-14] MEDS: SODIUM CHLORIDE 0.9% 1,000 ML IV SCH ×2 (00:09)
--- NOTE | 2022-02-14 08:00 | XR ---
EXAMINATION TYPE: XR chest 2V DATE OF EXAM: 02/14/2022 7:39 AM COMPARISON: Chest radiographs from 02/13/2022 TECHNIQUE: XR chest 2V Frontal and lateral views of the chest. CLINICAL INDICATION:Female, 76 years old with history of Lead placement check; FINDINGS: The patient is rotated which limits evaluation. Lungs/Pleura: There is no evidence of pleural effusion, focal consolidation, or pneumothorax. Multipl e bibasilar atelectasis. Pulmonary vascularity: Unremarkable. Heart/mediastinum: Cardiomediastinal silhouette is prominent in size. Musculoskeletal: Multiple level degenerative disc disease changes seen throughout the spine. No acute osseous adenopathy. Other findings: None Lines/Tubes: Stable position of the left anterior chest wall pacemaker generator with right atrial and right ventr icular leads. IMPRESSION: No acute cardiopulmonary disease/process. No significant change from prior examination.
[2022-02-14 08:33] VITALS: BP 144/80; PULSE 107; TEMP 98.6
[2022-02-14] MEDS ORDERED: POTASSIUM CHLORIDE ER 10 MEQ TAB.ER.PRT PO SCH (09:00)
[2022-02-14] MEDS: LORazepam 1 MG TAB PO PRN (09:01)
[2022-02-14] MEDS: LOSARTAN 50 MG TAB PO SCH ×2 (09:01→09:03)
[2022-02-14] MEDS: hydroCHLOROthiazide 25 MG TAB PO SCH ×2 (09:01→09:03)
[2022-02-14] MEDS: METOPROLOL TARTRATE 25 MG TAB PO SCH (10:59)
--- NOTE | 2022-02-14 11:26 | DS ---
DISCHARGE SUMMARY DATE OF ADMISSION: 02/13/2022. DATE OF DISCHARGE: 02/14/2022 DIAGNOSES: 1. Sick sinus syndrome with symptomatic bradycardia. 2. Hypertension. Mrs. Lyons was admitted with elective permanent dual-chamber pacemaker that was performed yesterday uneventfully. Her chest x-ray yesterday and this morning are unremarkable. Repeat device interrogation revealed good thresholds and sensitivities of both atrial and ventricular leads. Site is clean and dry. Patient is asymptomatic blood pressure 140/70, pulse rate is about 60 per minute, atrial sensed ventricular paced. S1, S2 heard normally. Short systolic murmur noted. Lungs are clear. Abdomen and lower extremity exam unchanged. Plan is to discharge today. Discharge instructions regarding the care of the site and wearing of the sling were advised. I will see her next Thursday in the office at 9:00 am. Discharge instructions given. Patient will be discharged today. MMODL / IJN: [id number] /
== END 2022-02-14 14:13 | disposition home or self-care (01) ==
LOC: CATHEP 08:51 → 6NMEDSUR 13:17 → CATHEP 02-14 14:13
PROVIDERS: ATTEND Internal Medicine Interventional Cardiology
DX: I49.5 Sick sinus syndrome (principal); R00.1 Bradycardia, unspecified; I10 Essential (primary) hypertension; Z20.822 Contact with and (suspected) exposure to COVID-19; M43.6 Torticollis; G25.0 Essential tremor; Z79.899 Other long term (current) drug therapy
CPT/HCPCS: 33208; 80048; 87635; 71045; 71046; C1769 ×2; C1892; C1898; C1785; J2250; J0690 ×2; J2001; J3010; Q9967

== ENCOUNTER 2024-07-31 10:02 | Emergency (ER) | payer MEDICARE, OTHER ==
[2024-07-31 10:11] VITALS: TEMP 98
[2024-07-31 10:53] VITALS: RESP 16
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
[2024-07-31 11:30] LABS: Basophils % (A) 0 %; Eosinophils # (A) 0.1 k/uL (0-0.7); Eosinophils % (A) 2 %; HCT 37.2 % (34.0-46.0); HGB 12.5 gm/dL (11.4-16.0); Lymphocytes # (A) 0.8 k/uL (1.0-4.8); Lymphocytes % (A) 18 %; MCH 31.6 pg (25.0-35.0); MCHC 33.5 g/dL (31.0-37.0); MCV 94.2 fL (80.0-100.0); Mean Platelet Volume 9.2; Monocytes # (A) 0.2 k/uL (0-1.0); Monocytes % (A) 5 %; Neutrophils # (A) 3.3 k/uL (1.3-7.7); Neutrophils % (A) 74 %; Platelet Count 177 k/uL (150-450); RBC 3.94 m/uL (3.80-5.40); RDW 12.4 % (11.5-15.5); WBC 4.5 k/uL (3.8-10.6)
[2024-07-31 11:51] LABS: ALT 16 U/L (4-34); AST 27 U/L (14-36); African American GFR (CKD) 44 (>60 ml/min/1.73 sqM); Albumin 3.4 g/dL (3.5-5.0); Alkaline Phosphatase 44 U/L (38-126); Anion Gap 7 mmol/L; Blood Urea Nitrogen 28 mg/dL (7-17); Calcium 8.9 mg/dL (8.4-10.2); Carbon Dioxide 31 mmol/L (22-30); Chloride 100 mmol/L (98-107); Glucose 110 mg/dL (74-99); Non-African American GFR(CKD) 38 (>60 ml/min/1.73 sqM); Potassium 2.8 mmol/L (3.5-5.1); Sodium 138 mmol/L (137-145); Total Bilirubin 0.3 mg/dL (0.2-1.3)
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
[2024-07-31] MEDS: POTASSIUM BICARBONATE/CIT AC 20 MEQ TABLET.EFF PO ONE (12:09)
[2024-07-31 12:19] VITALS: BP 115/71; PULSE 74
== END 2024-07-31 12:18 | disposition home or self-care (01) ==
LOC: EC 10:02
DX: J10.1 Influenza due to other identified influenza virus with other respiratory manifestations (principal); I48.91 Unspecified atrial fibrillation; E87.6 Hypokalemia; Z88.7 Allergy status to serum and vaccine
CPT/HCPCS: 36415; 71046; 80053; 85025; 87636; 93005; 99285